=== PATIENT | female | born 1970 | race Caucasian/White ===

== ENCOUNTER 2020-06-23 16:31 | Emergency (ER) | payer OTHER ==
--- NOTE | 2020-06-23 16:46 | PDOC ---
Rapid Medical Evaluation Time Seen by Provider: 06/23/20 16:43 Medical Evaluation: 06/23/20 16:44 49 year old female DM HTN complaining of lower abdominal pain with vaginal bleeding radiating from her back. PE: TTP to lower abdomen Plan: Labs Imaging differed to provider
[2020-06-23 16:51] VITALS: TEMP 98; BMI 38.2
--- OUTSIDE RECORDS SUMMARY | 2020-06-23 17:29 | XMS ---
:1970 Author Organization [facility] Care Team Providers Name Role Phone ED STAFF PHYSICIANLANIE Unavailable Unavailable ED STAFF PHYSICIAN, STAFF Unavailable Unavailable ZUNASSIGNED Unavailable Unavailable Re-disclosure Warning The records that you are about to access may contain information from federally- assisted alcohol or drug abuse programs. If such information is present, then the following federally mandated warning applies: This information has been disclosed to you from records protected by federal confidentiality rules (42 CFR part 2). The federal rules prohibit you from making any further disclosure of this information unless further disclosure is expressly permitted by the written consent of the person to whom it pertains or as otherwise permitted by 42 CFR part 2. A general authorization for the release of medical or other information is NOT sufficient for this purpose. The Federal rules restrict any use of the information to criminally investigate or prosecute any alcohol or drug abuse patient.The records that you are about to access may contain highly sensitive health information, the redisclosure of which is protected by Article 27-F of the [facility] Public Health law. If you continue you may haveaccess to information: Regarding HIV / AIDS; Provided by facilities licensed or operated by the [facility] Office of Mental Health; or Provided by the [facility] Office for People With Developmental Disabilities. If such information is present, then the following [facility] mandated warning applies: This information has been disclosed to you from confidential records which are protected by state law. State law prohibits you from making any further disclosure of this information without the specific written consent of the person to whom it pertains, or as otherwise permitted by law. Any unauthorized further disclosure in violation of state law may result in a fine or usp sentence or both. A general authorization for the release of medical or other information is NOT sufficient authorization for further disclosure. Encounters Encounter Providers Location Date Indications Data Source(s ) Emergency Attender: LANIE ED H 06/16/2020 Jessica Phelps STAFF 12:13:00 PM Medical Ava blunt PHYSICIANAttender: EDT - STAFF ED STAFF 06/16/2020 PHYSICIANAdmitter: 05:53:00 PM LANIE ED STAFF EDT PHYSICIANReferrer: ZUNASSIGNED Patient discharged. Outpatient 01/18/2020 04:55:00 PM EDT [facility] ([facility]) Outpatient 01/09/2020 05:45:00 PM EDT [facility] ([facility]) Medications Medication Brand Start Product Dose Route Administrative Pharmacy [facility] Indications Reaction Description Data Name Date Form Instructions Instructions Source(s) Trazodone traZOD 1.0 Oral active [facility] Hydrochlori one 2019 Table ([facility] est de 50 MG hydroc 04:00: t er Jewi sh Oral Tablet hlorid 00 AM Commu nity e EDT Services) Sertraline Zoloft 1.0 Oral active [facility] 50 MG Oral 2019 Table ([facility] Tablet 04:00: t er [facility] [Zoloft] 00 AM Community EDT Services) Trazodone traZOD 1.0 Oral active [facility] Hydrochlori one 2019 Table ([facility] est de 50 MG hydroc 04:00: t er Jewi sh Oral Tablet hlorid 00 AM Commu nity e EDT Services) Sertraline Zoloft 1.0 Oral active [facility] 50 MG Oral 2019 Table ([facility] Tablet 04:00: t er [facility]astafari [Zoloft] 00 AM Community EDT Services) Insurance Providers Payer name Policy type Policy ID Covered Covered libertarian's Policy P marcy / Coverage libertarian ID relationship to Al Inf ormation type al [employer] [id number] SP [id number] W O YEFRI O [id number] [employer] Problems, Conditions, and Diagnoses Code Display Name Description Problem Type Effective Data Dates Source(s) [id number] Posttraumatic Posttraumatic Complaint 02/28/2020 [facility] stress disorder stress disorder 03:55:00 PM ([facility] EDT [facility]) [id number] Recurrent major Recurrent major Complaint 02/28/2020 [facility] depressive depressive 03:55:00 PM ([place] episodes, moderate episodes, moderate [facility]) [id number] Depression Depression Complaint 01/11/2020 [facility] (finding) (finding) 04:00:00 AM ([facility]) [id number] Depressive Depressive Complaint 01/11/2020 [facility] disorder disorder 04:00:00 AM ([facility] 02/28/2020 [facility] 03:55:00 PM Services) EDT I10 Essential ESSENTIAL Diagnosis 06/16/2020 [facility] (primary) (PRIMARY) 12:13:00 PM Medical hypertension HYPERTENSION EDT Center E11.65 Type 2 diabetes TYPE 2 DIABETES Diagnosis 06/16/2020 Jessica gisele Phelps mellitus with MELLITUS WITH 12:13:00 PM Medical hyperglycemia HYPERGLYCEMIA EDT Center R51.9 HEADACHE, HEADACHE, Diagnosis 06/16/2020 [facility] UNSPECIFIED UNSPECIFIED 12:13:00 PM Medical EDT Center Results ID Date Data Source Liver 06/16/2020 03:05:00 PM EDT [facility] Profile.[id number] Name Value Range Interpretation Description Data Sup porting Code Source(s) Document(s ) Aspartate 14-36 <content [facility] aminotransferase styleCode="Bold"> Humberto hs [Enzymatic Aspartate Medical activity/volume] Aminotransferase Center in Serum or Plasma (AST) </content>19 IU/L<content styleCode="Italic s"> (14-36 IU/L)</content> Alanine 7-30 <content [facility] aminotransferase styleCode="Bold"> Humberto hs [Enzymatic Alanine Medical activity/volume] Aminotransferase Center in Serum or Plasma (ALT) </content>23 IU/L<content styleCode="Italic s"> (7-30 IU/L)</content> Bilirubin.total 0.2-1.3 <content Saint [Mass/volume] in styleCode="Bold"> Humberto hs Serum or Plasma Bilirubin Total Medical </content>0.3 Center MG/DL<content styleCode="Italic s"> (0.2-1.3 MG/DL)</content> Albumin 3.5-5.0 <content Saint [Mass/volume] in styleCode="Bold"> Humberto hs Serum or Plasma Albumin Medical </content>3.9 Center G/DL<content styleCode="Italic s"> (3.5-5.0 G/DL)</content> Alkaline 38-126 <content [facility] phosphatase styleCode="Bold"> Mattie [Enzymatic Alkaline Medical activity/volume] Phosphatase (ALP) Cente r in Serum or Plasma </content>92 IU/L<content styleCode="Italic s"> (38-126 IU/L)</content> ID Date Data Source GFR(Creatinine).[id number] 06/16/2020 03:05:00 PM EDT [facility] 0-0400 Name Value Range Interpretation Code Description Data Tahira rce(s) Supporting Document(s ) UNK > 60 <content [facility] styleCode="Bold"> Medical Cent er EGFR </content>138 GFR<content styleCode="Italic s"> (> 60 GFR)</content> ID Date Data Source CHMROUTINECCDA.[id number] 06/16/2020 03:05:00 PM EDT [facility] -0400 Name Value Range Interpretation Description Data Sup porting Code Source(s) Document(s ) Protein 6.3-8.2 <content [facility] [Mass/volum styleCode="Bold Medical e] in Serum ">Total Protein Center or Plasma </content>6.8 G/DL<content styleCode="Ital ics"> (6.3-8.2 G/DL)</content> UNK 2.3-3.5 <content [facility] Mattie styleCode="Bold Medical ">Globulin Center </content>2.9 G/DL<content styleCode="Ital ics"> (2.3-3.5 G/DL)</content> UNK >= 1.0 <content [facility] Mattie styleCode="Bold Medical ">AG Ratio Center </content>1.3 <content styleCode="Ital ics"> (>= 1.0 )</content> ID Date Data Source CardiacMarkers.[id number] 06/16/2020 03:05:00 PM EDT Juaquin nt [facility] -0400 Name Value Range Interpretation Description Data Sup porting Code Source(s) Document(s ) Troponin < 0.034 <content [facility] I.cardiac styleCode="Bold Mattie [Mass/volume ">Troponin I Medical ] in Serum </content>< Center or Plasma 0.012 NG/ML<content styleCode="Ital ics"> (< 0.034 NG/ML)</content > ID Date Data Source BMP.[id number] 06/16/2020 03:05:00 PM EDT [facility] Name Value Range Interpretation Description Data Sup porting Code Source(s) Document(s ) Sodium 137-145 Below low <content [facility] [Moles/volume] in normal styleCode="Bold"> [facility] Serum or Plasma Sodium Medical </content>134 Center MEQ/L L<content styleCode="Italic s"> (137-145 MEQ/L)</content> Chloride 98-107 <content [facility] [Moles/volume] in styleCode="Bold"> [facility] Serum or Plasma Chloride Medical </content>101 Center MEQ/L<content styleCode="Italic s"> (98-107 MEQ/L)</content> Creatinine 0.5-1.3 <content [facility] [Mass/volume] in styleCode="Bold"> Humberto hs Serum or Plasma Creatinine Medical </content>0.5 Center MG/DL<content styleCode="Italic s"> (0.5-1.3 MG/DL)</content> Potassium 3.5-5.3 <content [facility] [Moles/volume] in styleCode="Bold"> [facility] Serum or Plasma Potassium Medical </content>4.0 Center MEQ/L<content styleCode="Italic s"> (3.5-5.3 MEQ/L)</content> UNK 7-17 <content Saint styleCode="Bold"> Mattie BUN </content>10 Medical MG/DL<content Center styleCode="Italic s"> (7-17 MG/DL)</content> Carbon dioxide, 22-30 <content [facility] total styleCode="Bold"> Mattie [Moles/volume] in Carbon Dioxide Medical Serum or Plasma </content>27 Center MEQ/L<content styleCode="Italic s"> (22-30 MEQ/L)</content> UNK > 60 <content Saint styleCode="Bold"> Mattie EGFR Medical </content>138 Center GFR<content styleCode="Italic s"> (> 60 GFR)</content> Aspartate 14-36 <content [facility] aminotransferase styleCode="Bold"> Humberto hs [Enzymatic Aspartate Medical activity/volume] Aminotransferase Center in Serum or Plasma (AST) </content>19 IU/L<content styleCode="Italic s"> (14-36 IU/L)</content> Calcium 8.4-10. <content [facility] [Mass/volume] in 2 styleCode="Bold"> Humberto hs Serum or Plasma Calcium Medical </content>9.1 Center MG/DL<content styleCode="Italic s"> (8.4-10.2 MG/DL)</content> Alanine 7-30 <content [facility] aminotransferase styleCode="Bold"> Humberto hs [Enzymatic Alanine Medical activity/volume] Aminotransferase Center in Serum or Plasma (ALT) </content>23 IU/L<content styleCode="Italic s"> (7-30 IU/L)</content> Glucose 74-106 Above high <content Saint [Mass/volume] in normal styleCode="Bold"> Humberto hs Serum or Plasma Glucose Medical </content>288 Center MG/DL H<content styleCode="Italic s"> (74-106 MG/DL)</content> Albumin 3.5-5.0 <content Saint [Mass/volume] in styleCode="Bold"> Humberto hs Serum or Plasma Albumin Medical </content>3.9 Center G/DL<content styleCode="Italic s"> (3.5-5.0 G/DL)</content> Bilirubin.total 0.2-1.3 <content Saint [Mass/volume] in styleCode="Bold"> Humberto hs Serum or Plasma Bilirubin Total Medical </content>0.3 Center MG/DL<content styleCode="Italic s"> (0.2-1.3 MG/DL)</content> Alkaline 38-126 <content [facility] phosphatase styleCode="Bold"> Mattie [Enzymatic Alkaline Medical activity/volume] Phosphatase (ALP) Cente r in Serum or Plasma </content>92 IU/L<content styleCode="Italic s"> (38-126 IU/L)</content> ID Date Data Source Urinalysis.[id number] 06/16/2020 01:55:00 PM EDT [facility] 0 Name Value Range Interpretation Description Data Sup porting Code Source(s) Document(s ) Color of Urine YELLOW <content Saint styleCode="Cabrera Diazs d">Color, [facility] Urine Center </content>YELL OW <content styleCode="Pearl lics"> (YELLOW )</content> Ketones NEGATIVE <content Saint [Mass/volume] styleCode="Cabrera Diazs in Urine by d">Urine Medical Test strip Ketone Center </content>40 MG/DL<content styleCode="Pearl lics"> (NEGATIVE MG/DL)</conten t> UNK CLEAR <content Saint styleCode="Cabrera Diazs d">Urine Medical Clarity Center </content>TERE R <content styleCode="Pearl lics"> (CLEAR )</content> UNK NEGATIVE <content Saint styleCode="Cabrera Diazs d">Urine Medical Bilirubin Center </content>NEGA TIVE <content styleCode="Pearl lics"> (NEGATIVE )</content> Glucose NEGATIVE <content Saint [Mass/volume] styleCode="Cabrera Diazs in Urine by d">Urine Medical Test strip Glucose Center </content>>=10 00 MG/DL<content styleCode="Pearl lics"> (NEGATIVE MG/DL)</conten t> Protein NEGATIVE <content Saint [Mass/volume] styleCode="Cabrera Diazs in Urine by d">Urine Medical Test strip Protein Center </content>NEGA TIVE MG/DL<content styleCode="Pearl lics"> (NEGATIVE MG/DL)</conten t> pH of Urine by 4.5-8.0 <content Saint Test strip styleCode="Cabrera Mattie d">Urine pH Medical </content>5.5 Center <content styleCode="Pearl lics"> (4.5-8.0 )</content> Hemoglobin NEGATIVE <content Saint [Presence] in styleCode="Cabrera Diazs Urine by Test d">Urine Blood Medical strip </content>SMAL Center L <content styleCode="Pearl lics"> (NEGATIVE )</content> Specific 1.015-1.02 <content Saint gravity of 5 styleCode="Cabrera Diazs Urine by Test d">Urine Medical strip Specific Center [place] </content>1.02 5 <content styleCode="Pearl lics"> (1.015-1.025 )</content> UNK 0-3 <content Saint styleCode="Cabrera Mattie d">Urine Red Medical Blood Cell Center </content>3-5 HPF<content styleCode="Pearl lics"> (0-3 HPF)</content> Nitrite NEGATIVE <content Saint [Presence] in styleCode="Cabrera Diazs Urine by Test d">Urine Medical strip Nitrite Center </content>NEGA TIVE <content styleCode="Pearl lics"> (NEGATIVE )</content> Leukocyte NEGATIVE <content Saint esterase styleCode="Cabrera Diazs [Presence] in d">Urine Medical Urine by Test Leukocyte Center strip </content>NEGA TIVE <content styleCode="Pearl lics"> (NEGATIVE )</content> Urobilinogen 0.2-1.0 <content Saint [Units/volume] styleCode="Cabrera Diazs in Urine by d">Urine Medical Test strip Urobilinogen Center </content>0.2 MG/DL<content styleCode="Pearl lics"> (0.2-1.0 MG/DL)</conten t> UNK NONE SEEN <content Saint styleCode="Cabrera Mattie d">Epithelial Medical Cell Center </content>0-2 HPF<content styleCode="Pearl lics"> (NONE SEEN HPF)</content> UNK 0-3 <content Saint styleCode="Cabrera Mattie d">Urine White Medical Blood Cell Center </content>0-3 HPF<content styleCode="Pearl lics"> (0-3 HPF)</content> ID Date Data Source HematologyRou.[id number] 06/16/2020 01:19:00 PM EDT Juaquin [facility] 0400 Name Value Range Interpretation Description Data Sup porting Code Source(s) Document(s ) Hemoglobin 12.3-16. <content Saint [Mass/volume] in 0 styleCode="Bold Mattie Blood ">Hemoglobin Medical </content>14.1 Center G/DL<content styleCode="Ital ics"> (12.3-16.0 G/DL)</content> Leukocytes 4.4-11.0 <content Saint [#/volume] in styleCode="Bold Mattie Blood by ">White Blood Medical Automated count Cell Count Center </content>4.61 KCUMM<content styleCode="Ital ics"> (4.4-11.0 KCUMM)</content > Erythrocytes 4.0-5.1 Above high <content Saint [#/volume] in normal styleCode="Bold Mattie Blood by ">Red Blood Medical Automated count Cell Count Center </content>5.13 MCUMM H<content styleCode="Ital ics"> (4.0-5.1 MCUMM)</content > Erythrocyte mean 80.0-100 <content Saint corpuscular .0 styleCode="Bold Mattie volume [Entitic ">Mean Medical volume] by Corpuscular Center Automated count Volume </content>86.4 FL<content styleCode="Ital ics"> (80.0-100.0 FL)</content> Erythrocyte mean 32.0-37. Below low normal <content Saint corpuscular 0 styleCode="Bold Mattie hemoglobin ">Mean Corpus. Medical concentration Hgb Center [Mass/volume] by Concentration Automated count (MCHC) </content>31.8 G/DL L<content styleCode="Ital ics"> (32.0-37.0 G/DL)</content> Hematocrit 36.0-46. <content Saint [Volume 0 styleCode="Bold Mattie Fraction] of ">Hematocrit Medical Blood by </content>44.3 Center Automated count %<content styleCode="Ital ics"> (36.0-46.0 %)</content> Erythrocyte mean 26.0-34. <content Saint corpuscular 0 styleCode="Bold Mattie hemoglobin ">Mean Medical [Entitic mass] Corposcular Center by Automated Hemoglobin count </content>27.5 PG<content styleCode="Ital ics"> (26.0-34.0 PG)</content> Erythrocyte 11.5-14. <content Saint distribution 5 styleCode="Bold Mattie width [Ratio] by ">Red Cell Medical Automated count Distribution Center Width </content>14.5 %<content styleCode="Ital ics"> (11.5-14.5 %)</content> Platelet mean 8.0-11.0 Above high <content Saint volume [Entitic normal styleCode="Bold Mattie volume] in Blood ">Mean Platelet Medical by Automated Volume Center count </content>12.0 FL H<content styleCode="Ital ics"> (8.0-11.0 FL)</content> Neutrophils 36-66 <content Saint [#/volume] in styleCode="Bold Mattie Blood by ">Neutrophil Medical Automated count </content>37.8 Center %<content styleCode="Ital ics"> (36-66 %)</content> UNK 1.6-7.3 <content Saint styleCode="Bold Mattie ">Neutrophil Medical Count Center </content>1.74 KCUMM<content styleCode="Ital ics"> (1.6-7.3 KCUMM)</content > Platelets 130-400 <content Saint [#/volume] in styleCode="Bold Mattie Blood by ">Platelet Medical Automated count Count Center </content>237 KCUMM<content styleCode="Ital ics"> (130-400 KCUMM)</content > UNK 1.0-4.8 <content Saint styleCode="Bold Mattie ">Lymphocyte Medical Count Center </content>2.18 KCUMM<content styleCode="Ital ics"> (1.0-4.8 KCUMM)</content > Lymphocytes 24.0-44. Above high <content Saint [#/volume] in 0 normal styleCode="Bold Mattie Blood by ">Lymphocyte Medical Automated count </content>47.3 Center % H<content styleCode="Ital ics"> (24.0-44.0 %)</content> UNK 0.2-0.9 <content Saint styleCode="Bold Mattie ">Monocyte Medical Count Center </content>0.50 KCUMM<content styleCode="Ital ics"> (0.2-0.9 KCUMM)</content > Monocytes 3.0-10.0 Above high <content Saint [#/volume] in normal styleCode="Bold Mattie Blood by ">Monocyte Medical Automated count </content>10.8 Center % H<content styleCode="Ital ics"> (3.0-10.0 %)</content> Basophils 0.0-1.0 Above high <content Saint [#/volume] in normal styleCode="Bold Mattie Blood by ">Basophil Medical Automated count </content>1.1 % Center H<content styleCode="Ital ics"> (0.0-1.0 %)</content> Eosinophils 0-5.0 <content Saint [#/volume] in styleCode="Bold Mattie Blood by ">Eosinophil Medical Automated count </content>2.8 Center %<content styleCode="Ital ics"> (0-5.0 %)</content> UNK 0.0-0.3 <content Saint styleCode="Bold Mattie ">Basophil Medical Count Center </content>0.05 KCUMM<content styleCode="Ital ics"> (0.0-0.3 KCUMM)</content > UNK 0.0-0.6 <content Saint styleCode="Bold Mattie ">Eosinophil Medical Count Center </content>0.13 KCUMM<content styleCode="Ital ics"> (0.0-0.6 KCUMM)</content > UNK < 1 <content Saint styleCode="Bold Mattie ">Immature Medical Granulocyte Center Ratio </content>0.2 %<content styleCode="Ital ics"> (< 1 %)</content> UNK 0-0.1 <content Saint styleCode="Bold Mattie ">Immature Medical Granulocyte Center Count </content>0.01 KCUMM<content styleCode="Ital ics"> (0-0.1 KCUMM)</content > UNK 0 <content Saint styleCode="Bold Mattie ">Nucleated Red Medical Blood Cell Center </content>0.0 /100<content styleCode="Ital ics"> (0 /100)</content> UNK 0.0 <content Saint styleCode="Bold Mattie ">Nucleated Red Medical Blood Cell Center Count </content>0.00 KCUMM<content styleCode="Ital ics"> (0.0 KCUMM)</content > ID Date Data Source GFR(Creatinine).[id number] 06/16/2020 01:19:00 PM EDT [facility] 0-0400 Name Value Range Interpretation Code Description Data Tahira rce(s) Supporting Document(s ) UNK <content [facility] Mattie styleCode="Bold"> Medical Cent er EGFR </content>Test not performed. GFR (Reference Range: not available)
ID Date Data Source CardiacMarkers.[id number] 06/16/2020 01:19:00 PM EDT [facility] -0400 Name Value Range Interpretation Description Data Sup porting Code Source(s) Document(s ) Troponin <content [facility] Mattie I.cardiac styleCode="Bold Medical [Mass/volume ">Troponin I Center ] in Serum </content>Test or Plasma not performed. NG/ML (Reference Range: not available)
ID Date Data Source BMP.[id number] 06/16/2020 01:19:00 PM EDT [facility] Name Value Range Interpretation Description Data Sup porting Code Source(s) Document(s ) Chloride <content Saint [Moles/volume] styleCode="Bold Mattie in Serum or ">Chloride Medical Plasma </content>Test Center not performed. MEQ/L (Reference Range: not available)
Carbon <content Saint dioxide, total styleCode="Bold Mattie [Moles/volume] ">Carbon Medical in Serum or Dioxide Center Plasma </content>Test not performed. MEQ/L (Reference Range: not available)
Sodium <content Saint [Moles/volume] styleCode="Bold Mattie in Serum or ">Sodium Medical Plasma </content>Test Center not performed. MEQ/L (Reference Range: not available)
Potassium <content Saint [Moles/volume] styleCode="Bold Mattie in Serum or ">Potassium Medical Plasma </content>Test Center not performed. MEQ/L (Reference Range: not available)
Creatinine <content Saint [Mass/volume] styleCode="Bold Mattie in Serum or ">Creatinine Medical Plasma </content>Test Center not performed. MG/DL (Reference Range: not available)
Calcium <content Saint [Mass/volume] styleCode="Bold Mattie in Serum or ">Calcium Medical Plasma </content>Test Center not performed. MG/DL (Reference Range: not available)
UNK <content Saint styleCode="Bold Mattie ">EGFR Medical </content>Test Center not performed. GFR (Reference Range: not available)
Glucose <content Saint [Mass/volume] styleCode="Bold Mattie in Serum or ">Glucose Medical Plasma </content>Test Center not performed. MG/DL (Reference Range: not available)
UNK <content Saint styleCode="Bold Mattie ">BUN Medical </content>Test Center not performed. MG/DL (Reference Range: not available)
Procedure Social History Code Duration Value Status Description Data Source(s ) Smoking 06/16/2020 Denies Ever completed Denies Ever Smoked [facility] 12:41:00 PM EDT Smoked Medical C enter Smoking 06/16/2020 Denies Ever completed Denies Ever Smoked [facility] 12:19:00 PM EDT Smoked Medical C enter Vital Signs ID Date Data Source UNK Name Value Range Interpretation Code Description Data Source(s) Body weight 127.155821 127.081291 kg [facility] phs Measured kg Medical Center Body temperature 37.719638 37.877463 [facility] Respiratory rate 20 /min 20 /min [facility] Oxygen saturation 97 % 97 % Saint Duong aguilar in Arterial blood Medical Center by Pulse oximetry Heart rate 80 /min 80 /min [facility] Body height 164.619778 164.033400 cm [facility] Diastolic blood 80 mm[Hg] 80 mm[Hg] [facility] pressure Medical Center Systolic blood 121 mm[Hg] 121 mm[Hg] [facility] pressure Medical Center Body mass index 46.6 kg/m2 46.6 kg/m2 [facility] (BMI) [Ratio] Medical [address]
--- NOTE | 2020-06-23 20:09 | PDOC ---
History of Present Illness - General Chief Complaint: Pain Stated Complaint: ABD & BACK PAIN Time Seen by Provider: 06/23/20 16:43 History Source: Patient Exam Limitations: Language Barrier ([facility] merit system director services was used for admission and discharge instruction for this patient) - History of Present Illness Initial Comments: 06/23/20 21:45 49-year-old female complains of pelvic cramping and vaginal bleeding since 6 AM this morning. Patient reports that the cramping radiates to the left flank patient reports that she has not had her menstrual. For the last 7 years unsure of the cause of her vaginal bleeding. Denies urinary symptoms. Patient has a history of hypertension, diabetes, hypercholesterolemia Past History - Medical History Allergies/Adverse Reactions: Allergies Allergy/AdvReac Type Severity Reaction Status Date / Time No Known Allergies Allergy Verified 06/23/20 16:44 Home Medications: Ambulatory Orders Cephalexin Monohydrate [Keflex -] 500 mg PO BID #20 capsule 06/23/20 Ibuprofen 600 mg PO QID PRN #20 tablet 06/23/20 - Reproductive History Is Patient Now?: No - Psycho-Social/Smoking History Smoking History: Never smoked Have you smoked in the past 12 months: No - Substance Abuse Hx (Audit-C & DAST Scrn) How often the patient has a drink containing alcohol: Never Score: In Men: 4 or > Positive; In Women: 3 or > Positive: 0 Screen Result (Pos requires Nsg. Audit-10AR): Negative In the last yr the pt used illegal drug/Rx for NonMed reason: No Score: Yes response is considered Positive: 0 Screen Result (Positive result requires Nsg. DAST-10): Negative Review of Systems - Review of Systems Able to Perform ROS?: Yes Is the patient limited Algerian proficient: No : Yes: Flank Pain, Other (vaginal bleeding) *Physical Exam - Vital Signs Last Vital Signs Temp Pulse Resp BP Pulse Ox 98 F 91 H 16 106/62 100 06/23/20 16:44 06/23/20 16:44 06/23/20 16:44 06/23/20 16:44 06/23/20 16:44 - Physical Exam General Appearance: Yes: Appropriately Dressed Respiratory/Chest: positive: Lungs Clear, Normal Breath Sounds Cardiovascular: positive: Regular Rhythm, Regular Rate Female Pelvic Exam: positive: normal external exam, cervical os closed, adnexal tenderness (left adnexal tenderness), vaginal bleeding Gastrointestinal/Abdominal: positive: Normal Bowel Sounds, Tender (L) Musculoskeletal: positive: CVA Tenderness (L) Extremity: positive: Normal Capillary Refill, Normal Inspection, Normal Range of Motion Integumentary: positive: Normal Color, Dry, Warm Neurologic: positive: Fully Oriented, Alert ED Treatment Course - LABORATORY CBC & Chemistry Diagram: 06/23/20 20:26 06/23/20 20:26 ED Progress Note - Progress Note Progress Note: 06/24/20 03:35 A: pelvic pain; vaginal bleeding; UTI P: TVUS cbc cmp ua Medical Decision Making - Medical Decision Making 06/23/20 23:11 Patient is feeling better. Discharge instruction given with merit system director services. Patient verbalized understanding. Strict return precautions were given to patient. Referral to for gynecology was given to patient Discharge - Discharge Information Problems reviewed: Yes Clinical Impression/Diagnosis: Vaginal bleeding Uterine fibroid Qualifiers: Uterine leiomyoma location: unspecified location Qualified Code(s): D25.9 - Leiomyoma of uterus, unspecified UTI (urinary tract infection) Qualifiers: Urinary tract infection type: acute cystitis Hematuria presence: without hematuria Qualified Code(s): N30.00 - Acute cystitis without hematuria Condition: Stable Disposition: HOME - Additional Discharge Information Prescriptions: Ibuprofen 600 mg PO QID PRN #20 tablet PRN Reason: Pain Cephalexin Monohydrate [Keflex -] 500 mg PO BID #20 capsule - Follow up/Referral Referrals: ON STAFF,NOT [Primary Care Provider] - America Younger MD [Staff Physician] - Call tomorrow - Patient Discharge Instructions Patient Printed Discharge Instructions: DI for Vaginal Bleeding Additional Instructions: It is important that you follow-up with a pastrycook. Take ibuprofen every 6 hours as needed for pain Take cephalexin as prescribed for urinary tract infection. Return to the ER if you are soaking 2 pads per hour, severe abdominal pain, or worsening symptoms. - Post Discharge Activity Work/Back to School Note: Back to Work
[2020-06-23 20:38] LABS: BASO % 0.6 % (0-2.0); EOS % 1.7 % (0-4.5); HEMATOCRIT 43.9 % (32.4-45.2); HEMOGLOBIN 14.5 GM/dL (10.7-15.3); LYMPH % 36.3 % (8-40); MCH 28.8 pg (25.7-33.7); MEAN CELL VOLUME 87.4 fl (80-96); MEAN PLT VOLUME 10.1 fl (7.5-11.1); MONO % 10.1 % (3.8-10.2); NEUT % 51.3 % (42.8-82.8); PLATELET COUNT 224 K/MM3 (134-434); RBC 5.02 M/mm3 (3.60-5.2); RDW 15.5 % (11.6-15.6); WHITE BLOOD COUNT 8.8 K/mm3 (4.0-10.0)
[2020-06-23 20:44] LABS: EPI CELLS 28 /uL (0-25.1); HYALINE CASTS 1 /uL (0-3.1); PH,URINE >= 9.0 (5.0-8.0); URINE APPEARANCE CLEAR; URINE BACTERIA 808 /uL (0-1359); URINE BILIRUBIN NEGATIVE (NEGATIVE); URINE COLOR YELLOW; URINE GLUCOSE (UA) 1+ (NEGATIVE); URINE KETONE 1+ (NEGATIVE); URINE LEUK ESTERASE NEGATIVE (NEGATIVE); URINE NITRITE NEGATIVE (NEGATIVE); URINE PROTEIN 1+ (NEGATIVE); URINE RBC 4 /uL (0-23.9); URINE WBC 12 /uL (0-25.8)
[2020-06-23 20:48] LABS: INR 1.13 (0.83-1.09); PROTHROMBIN TIME (PATIENT) 13.3 SEC (9.7-13.0)
[2020-06-23] MEDS ORDERED: KETOROLAC TROMETHAMINE 30 MG/1 ML VIAL IVPUSH ONE (20:56)
[2020-06-23 21:09] LABS: ALBUMIN 3.3 g/dl (3.4-5.0); BILIRUBIN,TOTAL 0.5 mg/dL (0.2-1); CALCIUM 9.1 mg/dL (8.5-10.1); CREATININE 0.6 mg/dL (0.55-1.3); POTASSIUM 4.7 mmol/L (3.5-5.1); TOT PROT 7.7 g/dl (6.4-8.2)
[2020-06-23] MEDS ORDERED: KETOROLAC TROMETHAMINE 30 MG/1 ML VIAL ONE (21:19)
[2020-06-23 21:27] LABS: HCG,QUALITATIVE URINE Negative
[2020-06-23 23:31] VITALS: BP 124/68; PULSE 95
== END 2020-06-23 23:28 | disposition home or self-care (01) ==
LOC: JER 16:31
PROC: 3E0333Z Introduction of Anti-inflammatory into Peripheral Vein, Percutaneous Approach (ICD-10-PCS; principal; 2020-06-23)
DX: N93.9 Abnormal uterine and vaginal bleeding, unspecified (principal); D25.9 Leiomyoma of uterus, unspecified; N30.00 Acute cystitis without hematuria
CPT/HCPCS: 36415; 76830-TC; 80053; 81003; 83690; 84703; 85025; 85610; 87086; 99284-25